=== PATIENT | female | born 1955 | race Caucasian/White ===

== ENCOUNTER 2016-12-17 08:51 | Observation (INO) | payer SELFPAY ==
--- NOTE | ~2016-12-17 | HP ---
History And Physical [place] [id number] [facility] [place]. [address] NAME: RACHELLE MONZON : 59 STATUS : ADM Babatunde PAT#: [id number] AGE: 61 ADM/REG DATE : 12/17/16 MR#: [id number] REPORT SERV DATE: 12/17/16 DICTATED BY: DATE: REPORT STATUS : Draft TRANSCRIBED BY: MODL DATE: 12/17/16 DATE OF ADMISSION: 12/17/2016 PRIMARY CARE PROVIDER: She does not have one at this time. CHIEF COMPLAINT: Chest pain and chest pressure. HISTORY OF PRESENT ILLNESS: The patient is a 61-year-old white female who reports to have intermittent chest pain and pressure that radiates to her left arm for 2 weeks. She reports the pain is a 7/10 when it occurs and it resolved on its own. She also reports that she developed shortness of breath, has nausea and vomiting and diaphoresis during her chest pain and pressure events. She denies any palpitation. She denies any orthopnea or edema. She reports that the chest pain and pressure occurs with exertion or when lying down. The patient's only cardiac history is persistent atrial fibrillation which she appears to be in currently. She however denies any palpitations, dizziness, or syncope. Currently she reports to have some chest pressure to her midsternal area at 6/10. She denies any radiating pain to her left arm, jaw, neck, or anywhere else. She currently denies any shortness of breath, nausea, vomiting, or diaphoresis. The patient denies any personal history of myocardial infarctions, DVTs, or pulmonary embolus. The patient denies any recent fever or chills. Denies any dizziness or presyncope or syncope. PAST MEDICAL HISTORY: 1. Persistent atrial fibrillation. 2. Hypertension. 3. Hyperlipidemia. 4. Questionable obstructive sleep apnea. 5. Panic disorder. 6. Depression. 7. Idiopathic urticaria. 8. Staph infection "in bloodstream" in her 20s. PAST SURGICAL HISTORY: She reports to have had a Simpson catheter to her chest wall for antibiotics when she was in her 20s. Denies any other past surgical history. SOCIAL HISTORY: She reports to have recently resigned from her job due to her health problems. She reports to be and does not have any children. She denies smoking. She denies alcohol use. She denies any drug use. FAMILY HISTORY: She reports her mother has a history of hypertension. Her father has a history of [place], he at the age of 51, post CABG and a PE. REVIEW OF SYSTEMS: A 14-point review of systems was performed significant for HPI. No other contributory diagnosis is identified. History And Physical [address] [place]. [address] NAME: RACHELLE MONZON : 59 STATUS : ADM Babatunde PAT#: [id number] AGE: 61 ADM/REG DATE : 12/17/16 MR#: [id number] REPORT SERV DATE: 12/17/16 DICTATED BY: DATE: REPORT STATUS : Draft TRANSCRIBED BY: MODL DATE: 12/17/16 ALLERGIES: PREDNISONE, REACTION "OUT OF MY MIND". TETRACYCLINE, REACTION HIVES. HOME MEDICATIONS: 1. Eliquis 5 mg p.o. prescribed twice a day, the patient reports to take every 48 hours or p.r.n. 2. Lisinopril 5 mg prescribed daily. The patient takes every 48 hours or as needed. 3. Diltiazem CD 180 mg prescribed 360 mg daily. The patient takes 100 mg daily p.o. daily or as needed. PHYSICAL EXAMINATION: VITAL SIGNS: Blood pressure 168/48, pulse is 85, temperature 97.1, respirations 24, and O2 saturation 95% on room air. GENERAL: Cooperative, in no apparent distress. HEENT: Head normocephalic, anicteric. Normal EOM. PERRLA. No xanthelasma. Nares patent. Moist mucous membranes. NECK: Trachea midline. No thyromegaly, JVD or bruits. RESPIRATORY: Clear to auscultation bilaterally anterior and posterior. Respirations even and unlabored. No wheezes, rhonchi or crackles. CARDIOVASCULAR: Irregularly irregular, not regular rhythm. No murmur, rub or gallop appreciated. No chest wall tenderness to palpation. ABDOMEN: Obese. Soft, nontender, nondistended, normal bowel sounds auscultated throughout. No masses or organomegaly. EXTREMITIES: No peripheral edema. DP/PT and radial pulses palpable bilaterally. No clubbing or cyanosis. SKIN: Warm, dry and intact. Normal turgor. No pallor or cyanosis. NEURO/PSYCH: Alert, oriented x3 with no acute distress. Affect appropriate to current situation. LABORATORY DATA: Sodium 139, potassium 3.6, BUN 8, creatinine 0.78. GFR 96, glucose 111, calcium 8.8, and magnesium 2.0. White blood cells 7.0, hemoglobin 13.7, hematocrit 43.3, platelets 306, and INR 1.1. Troponin 0.05. BNP 287.5. TSH is 1.390. Chest x-ray shows cardiomegaly, otherwise negative AP portable chest. Also shows the patient has taken a shallow inspiration. The lungs and pleural spaces are clear. EKG dated 12/17/2016, at 0806 hours shows atrial fibrillation 114; at 1309 hours, it shows atrial fibrillation 89 beats per minute with a PVC. traffic monitor specialist shows atrial fibrillation 80s to 90s. Echocardiogram on 09/01/2015, shows EF of 60%. ASSESSMENT AND PLAN: 1. Substernal chest pain. The patient has a troponin x1 of 0.05. EKG shows atrial fibrillation with a PVC. The patient reports her pain, pressure is 6/10 currently. We will address that with chest pain protocol. I have notified the nurse to address that. The patient will continue to be observed in the CPOU to rule out myocardial infarction History And Physical [address] [address] NAME: RACHELLE MONZON : 59 STATUS : ADM Babatunde PAT#: [id number] AGE: 61 ADM/REG DATE : 12/17/16 MR#: [id number] REPORT SERV DATE: 12/17/16 DICTATED BY: DATE: REPORT STATUS : Draft TRANSCRIBED BY: MODL DATE: 12/17/16 with serial enzymes and serial EKGs. We will keep the patient n.p.o. and plan a cardiac PET scan today; if the stress test shows low risk or no ischemia, the patient may be discharged by the RN after her test. We will arrange a followup appointment with a PCP possibly closer to the patient's home in [facility] and we will send all the studies to that office. If anything suggestive of ischemia on the stress test, Cardiology referral will be initiated. 2. Persistent atrial fibrillation. The patient currently is adequately rate controlled with her heart rate in 80s to 90s. The patient has refused to cardioversion in the past. She currently does not wish to proceed with a cardioversion. Either she reports to take her Cardizem and Eliquis every 48 hours or on an as-needed basis due to her "liver function". The patient has denied any bleeding history. She denies any bleeding while on Eliquis. I have thoroughly discussed with the patient the importance of taking the medications as prescribed due to her history of a CVA and her increased risk for recurrent stroke in the setting of atrial fibrillation should she discontinue or stop her medications completely. The patient states understanding; however, she reports that she will continue to take it as she feels is needed. We have provided a prescription for the patient for a 1 month free supply of Eliquis, and we will be making arrangements for the patient's PCP arrangement, hopefully with [facility], so the patient can continue to follow up with all of her Healthcare. 3. Medication noncompliance. The patient does not take her medications as prescribed. She reports to take them whenever she feels is necessary. Again I have reiterated the importance of taking medications as prescribed for her atrial fibrillation. The patient voiced understanding. 4. Hypertension. Currently the patient's blood pressure is 168/48. We will continue to monitor. Again reiterated the importance of taking home medications as prescribed. 5. History of CVA. Again reiterated the importance of taking medications as prescribed especially Eliquis due to her history of a CVA and a history of having atrial fibrillation. The patient voiced understanding; however, she reports that she will take it as needed. We have also provided the patient with a 1-month free Eliquis prescription, and we will arrange followup with a new PCP hopefully with the [facility]. EKS/MODL Ant Cisneros APN / [id number] CC: Belle [place], YSABEL, [employer]-
[2016-12-17 08:43] LABS: BASOPHILS 0 %; EOSINOPHILS 0 %; HEMATOCRIT 43.3 % (36.0-48.0); HEMOGLOBIN 13.7 g/dL (12.0-16.0); IMMATURE GRANULOCYTES 0.1 %; IMMATURE GRANULOCYTES ABSOLUTE 0.01 10/3/uL (0.0-0.11); LYMPHOCYTES 24.2 %; LYMPHOCYTES ABSOLUTE 1.68 10/3/uL (0.67-4.30); MEAN CORPUS HGB CONC 31.6 g/dL (32.0-36.0); MEAN CORPUSCULAR HEMOGLOB 26.1 pg (26.0-34.0); MEAN CORPUSCULAR VOLUME 82.6 fL (80-100); MEAN PLATELET VOLUME 9.4 fL (9.2-13.0); MONOCYTES 9.8 %; MONOCYTES ABSOLUTE 0.68 10/3/uL (0.21-1.20); NEUTROPHILS 65.9 %; NEUTROPHILS ABSOLUTE 4.58 10/3/uL (2.02-8.40); PLATELET COUNT 306 10/3/uL (150-400); RBC DISTRIBUTION WIDTH 13.8 % (12.0-16.0); RED CELL COUNT 5.24 10/6/uL (4.0-5.6)
[2016-12-17 08:44] LABS: MANUAL DIFF NO %
[2016-12-17 08:51] LABS: INTERNATIONAL NORMAL RATI 1.1 UNITS (-); PARTIAL THROMBO TIME 29.2 SEC (22.5-37.2); PROTIME (NOT ORD) 14.5 SEC (12.0-14.5)
[2016-12-17 09:04] LABS: BUN (BLOOD UREA NITROGEN) 8 MG/DL (6-23); CALCIUM, SERUM 8.8 MG/DL (8.5-10.4); CHEST PAIN PROFILE TAT 0 Hrs 25 Mins; CHLORIDE, SERUM 104 MMOL/L (96-112); CO2 (CARBON DIOXIDE) 28 MMOL/L (24-34); CREATININE 0.78 MG/DL (0.55-1.02); GFR AFRICAN AMERICAN 96 ML/MIN (>=60); GFR NON AFRICAN AMERICAN 83 ML/MIN (>=60); GLUCOSE, SERUM 111 MG/DL (60-99); POTASSIUM, SERUM 3.6 MMOL/L (3.5-5.3); SODIUM, SERUM 139 MMOL/L (135-148); TROPONIN I 0.05 NG/ML (<0.05)
[2016-12-17 09:06] LABS: ASCORBIC ACID (UR NOT ORDER) NEG (NEG); BILIRUBIN, URINE NEGATIVE (NEG); ER URINALYSIS TAT 0 Hrs 11 Mins; KETONE, URINE NEGATIVE (NEG); LEUKOCYTE ESTERASE(NOT OR NEG (NEG); NITRITE (URINE) NEG (NEG); WBC (NOT ORDERED) (RFLEX) < 1 (0-5)
[2016-12-17] MEDS ORDERED: ELIQUIS 5 MG TAB5 MG PO (10:19)
[2016-12-17] MEDS ORDERED: PRIN5 PO (10:20)
[2016-12-17] MEDS ORDERED: CARDCD180 PO (10:21)
[2016-12-17 14:12] LABS: ALBUMIN 3.4 G/DL (3.5-5.0); ALKALINE PHOSPHATASE 84 U/L (45-117); FREE T4 1.09 NG/DL (0.76-1.46); SGPT(ALT) 22 U/L (5-65); TOTAL BILIRUBIN 0.2 MG/DL (0-1.2)
[2016-12-17 14:15] LABS: DIRECT BILIRUBIN < 0.1 MG/DL (0.0-0.4); INDIRECT BILIRUBIN(NOT ORDER) 0.1 MG/DL (0.1-0.9); SGOT(AST) 19 U/L (5-40)
== END 2016-12-17 19:11 | disposition home or self-care (01) ==
LOC: ER 08:51 → CDU1 10:23
PROVIDERS: Emergency Medicine
DX: R07.2 Precordial pain (principal); I48.1 Persistent atrial fibrillation; I10 Essential (primary) hypertension; E78.5 Hyperlipidemia, unspecified; F41.0 Panic disorder [episodic paroxysmal anxiety]; F32.9 Major depressive disorder, single episode, unspecified; L50.9 Urticaria, unspecified; Z86.73 Personal history of transient ischemic attack (TIA), and cerebral infarction without residual deficits; Z79.899 Other long term (current) drug therapy; Z88.1 Allergy status to other antibiotic agents
CPT/HCPCS: 71010; 78492; 80048; 80076; 81001; 83735; 83880; 84439; 84443; 84484; 85025; 85610; 85730; 93005; 93017; 93308; 96374; 96375; 99285; A9270-GY; A9555; C9113; G0378; J0280; J2405; J2785